=== PATIENT | female | born 1985 | race Caucasian/White ===

== ENCOUNTER 2016-05-22 01:01 | Emergency (ER) | payer SELFPAY ==
[2016-05-22] MEDS ORDERED: SPRINTEC 35 MCG1 TAB PO (01:12)
[2016-05-22] MEDS ORDERED: PERCOCET 325 MG1 TA2 PO (02:51)
[2016-05-22 03:15] VITALS: BP 128/74
== END 2016-05-22 03:15 | disposition home or self-care (01) ==
LOC: ED 01:01
DX: R10.11 Right upper quadrant pain (principal); R10.13 Epigastric pain; R11.2 Nausea with vomiting, unspecified; Z87.891 Personal history of nicotine dependence
CPT/HCPCS: C9113; J1885; J2270; J2405; J7030

== ENCOUNTER 2016-08-20 01:02 | Emergency (ER) | payer SELFPAY ==
[~2016-08-20] VITALS: Ht 162.6 cm; Wt 77.3 kg
[~2016-08-20 01:02] MED LIST: PERCOCET 325 MG1 TA2 PO; SPRINTEC 35 MCG1 TAB PO
[2016-08-20] MEDS ORDERED: FLAGYL500 M1 PO (02:46)
[2016-08-20] MEDS ORDERED: TETRACYCLINE H500 M2 PO (02:46)
[2016-08-20] MEDS ORDERED: PRILOSEC 20MG20 MG PO (02:46)
[2016-08-20] MEDS ORDERED: PEPTO BISM525 MG/15 PO (02:46)
[2016-08-20 03:12] VITALS: BP 122/63
== END 2016-08-20 03:14 | disposition home or self-care (01) ==
LOC: ED 01:02
DX: K27.3 Acute peptic ulcer, site unspecified, without hemorrhage or perforation (principal); K25.7 Chronic gastric ulcer without hemorrhage or perforation; B96.81 Helicobacter pylori [H. pylori] as the cause of diseases classified elsewhere
CPT/HCPCS: J1885; J2405; J7030

== ENCOUNTER → 2017-12-08 | Outpatient (CLI) | payer SELFPAY ==
[~2017-12-08] MED LIST changes: +FLAGYL500 M1 PO; +PEPTO BISM525 MG/15 PO; +PRILOSEC 20MG20 MG PO; +TETRACYCLINE H500 M2 PO
[2017-12-08 12:21] LABS: ALBUMIN 4.3 g/dL (3.5-5.0); CALCIUM 9.1 mg/dL (8.4-10.2); POTASSIUM 4.3 mmol/L (3.6-5.0); TOTAL BILIRUBIN 0.2 mg/dL (0.2-1.3); TOTAL PROTEIN 6.9 g/dL (6.3-8.2)
[2017-12-08 12:55] LABS: BASO # 0.1 (0.02-0.10); EOS # 0.4 (0.04-0.40); EOS % 5.8 % (1.0-5.0); HEMATOCRIT 42.8 % (37.0-47.0); LYMPH# 1.9 (1.50-4.00); MEAN CELL VOLUME 89 fl (78-100); MEAN CORPUSCULAR HEMOGLOBIN 29 pg (27-31); MEAN CORPUSCULAR HGB CONC 33 g/dL (33-37); MEAN PLATELET VOLUME 10.7 fl (7.4-10.4); MONO # 0.7 (0.20-0.80); PLATELET COUNT 249 K/mm3 (130-400); RED BLOOD COUNT 4.82 M/mm3 (4.10-5.30); RED CELL DISTRIBUTION WIDTH 12.9 % (11.5-14.5)
== END ==
LOC: LAB 11:45
PROVIDERS: Family Medicine
DX: Z01.419 Encounter for gynecological examination (general) (routine) without abnormal findings (principal); R53.83 Other fatigue; E55.9 Vitamin D deficiency, unspecified

== ENCOUNTER → 2018-06-22 | Outpatient (CLI) | payer SELFPAY ==
[2018-06-22 12:44] LABS: ALBUMIN 4.6 g/dL (3.5-5.0); CALCIUM 9.6 mg/dL (8.4-10.2); POTASSIUM 4.3 mmol/L (3.6-5.0); TOTAL BILIRUBIN 0.4 mg/dL (0.2-1.3); TOTAL PROTEIN 7.3 g/dL (6.3-8.2)
== END ==
LOC: LAB 09:55
PROVIDERS: Family Medicine
DX: K27.9 Peptic ulcer, site unspecified, unspecified as acute or chronic, without hemorrhage or perforation (principal); R10.9 Unspecified abdominal pain

== ENCOUNTER → 2018-06-27 | Outpatient (CLI) | payer SELFPAY | LOC: RAD 09:38 | DX: K80.20 Calculus of gallbladder without cholecystitis without obstruction (principal) ==

== ENCOUNTER 2018-07-09 20:05 | Emergency (ER) | payer SELFPAY ==
[2018-07-09 20:15] VITALS: BP 124/84
[2018-07-09 21:28] LABS: BASO # 0.1 (0.02-0.10); EOS # 0.4 (0.04-0.40); EOS % 5.6 % (1.0-5.0); HEMATOCRIT 41.5 % (37.0-47.0); HEMOGLOBIN 13.3 g/dL (12.5-16.0); LYMPH# 2.1 (1.50-4.00); MEAN CELL VOLUME 91 fl (78-100); MEAN CORPUSCULAR HEMOGLOBIN 29 pg (27-31); MEAN CORPUSCULAR HGB CONC 32 g/dL (33-37); MEAN PLATELET VOLUME 10.3 fl (7.4-10.4); MONO # 0.8 (0.20-0.80); NEU # 4.4 (1.40-6.50); PLATELET COUNT 218 K/mm3 (130-400); RED BLOOD COUNT 4.57 M/mm3 (4.10-5.30); RED CELL DISTRIBUTION WIDTH 13.2 % (11.5-14.5); WHITE BLOOD COUNT 7.8 K/mm3 (4.8-10.8)
[2018-07-09 21:39] LABS: PH-URINE 6.5 (5.0 - 8.0); URINE APPEARANCE CLOUDY; URINE BILIRUBIN NEGATIVE (NEGATIVE); URINE BLOOD NEGATIVE (NEGATIVE); URINE COLOR YELLOW; URINE GLUCOSE NEGATIVE (NEGATIVE); URINE KETONE NEGATIVE (NEGATIVE); URINE LEUKOCYTE ESTERASE TRACE (NEGATIVE); URINE NITRATE NEGATIVE (NEGATIVE); URINE PROTEIN(semi-quant) NEGATIVE (NEGATIVE); URINE UROBILINOGEN NORMAL (NORMAL); URINE WBC 0-1 /hpf (0-3)
[2018-07-09 21:40] LABS: ALBUMIN 4.2 g/dL (3.5-5.0); CALCIUM 9.1 mg/dL (8.4-10.2); POTASSIUM 3.6 mmol/L (3.6-5.0); TOTAL BILIRUBIN 0.3 mg/dL (0.2-1.3); TOTAL PROTEIN 6.9 g/dL (6.3-8.2); URINE MUCUS PRESENT (NOT PRESENT)
[2018-07-09] MEDS ORDERED: ZUPLENZ4 M1 PO (22:11)
[2018-07-09] MEDS ORDERED: ZOFRAN ODT4 MG PO (22:12)
[2018-07-09] MEDS ORDERED: CELEXA 20MG20 MG/TA1 PO (23:12)
== END 2018-07-09 22:19 | disposition home or self-care (01) ==
LOC: ED 20:05
PROVIDERS: Family Medicine
DX: K80.20 Calculus of gallbladder without cholecystitis without obstruction (principal); F41.0 Panic disorder [episodic paroxysmal anxiety]; F32.9 Major depressive disorder, single episode, unspecified; K21.9 Gastro-esophageal reflux disease without esophagitis; G43.909 Migraine, unspecified, not intractable, without status migrainosus; Z87.19 Personal history of other diseases of the digestive system
CPT/HCPCS: J1885; J2765; J7030

== ENCOUNTER → 2018-07-12 | Outpatient (CLI) | payer SELFPAY ==
[2018-07-09 20:15] VITALS: BP 124/84
[~2018-07-12] MED LIST changes: +CELEXA 20MG20 MG/TA1 PO; +ZOFRAN ODT4 MG PO; +ZUPLENZ4 M1 PO
[2018-07-13 12:09] LABS: C-REACTIVE PROTEIN XXX
[2018-07-14 02:11] LABS: ANA SCREEN with REFLEX Negative (Negative)
== END ==
LOC: LAB 15:23
PROVIDERS: Family Medicine
DX: R53.83 Other fatigue (principal); Z86.2 Personal history of diseases of the blood and blood-forming organs and certain disorders involving the immune mechanism

== ENCOUNTER → 2018-07-18 | Day surgery (SDC) | payer SELFPAY ==
[2018-07-09 20:15] VITALS: BP 124/84
== END ==
LOC: MSO 06:58
DX: K80.10 Calculus of gallbladder with chronic cholecystitis without obstruction (principal); J45.909 Unspecified asthma, uncomplicated; G43.909 Migraine, unspecified, not intractable, without status migrainosus; Z87.11 Personal history of peptic ulcer disease; Z88.2 Allergy status to sulfonamides
CPT/HCPCS: 00790; J0690; J1100; J1885; J2405; J2704; J3010; J7120; Q9967

== ENCOUNTER → 2020-12-18 | Outpatient (CLI) | payer SELFPAY ==
[~2020-12-18] MED LIST changes: +BONJESTA ER 201 EACH PO; +CYCLOBENZ5 MG PO; +PRENATAL VITAM1 EAC1 PO
[2020-12-19 01:24] LABS: LUTENIZING HORMONE 3.1 mIU/mL (()); PROGESTERONE 14.7 ng/mL (())
== END ==
LOC: LAB 16:39
PROVIDERS: Family Medicine
DX: N92.6 Irregular menstruation, unspecified (principal)

== ENCOUNTER → 2020-12-23 | Outpatient (CLI) | payer SELFPAY | LOC: LAB 10:03 | DX: Z32.01 Encounter for pregnancy test, result positive (principal) ==

== ENCOUNTER 2021-01-11 19:52 | Emergency (ER) | payer SELFPAY ==
[~2021-01-11] VITALS: Ht 162.6 cm; Wt 89.5 kg
[~2021-01-11 19:52] MED LIST changes: -BONJESTA ER 201 EACH PO; -CYCLOBENZ5 MG PO; -PRENATAL VITAM1 EAC1 PO
[2021-01-11] MEDS ORDERED: PRENATAL VITAM1 EAC1 PO (20:04)
[2021-01-11] MEDS ORDERED: CYCLOBENZ5 MG PO (20:05)
[2021-01-11] MEDS ORDERED: ZOFRAN ODT4 MG PO (22:05)
[2021-01-11 22:34] VITALS: BP 132/78
== END 2021-01-11 22:35 | disposition home or self-care (01) ==
LOC: ED 19:52
DX: O21.9 Vomiting of pregnancy, unspecified (principal); O99.341 Other mental disorders complicating pregnancy, first trimester; F32.A Depression, unspecified; O99.331 Smoking (tobacco) complicating pregnancy, first trimester; F17.200 Nicotine dependence, unspecified, uncomplicated; Z3A.01 Less than 8 weeks gestation of pregnancy; Z79.899 Other long term (current) drug therapy
CPT/HCPCS: J2765; J7030

== ENCOUNTER 2021-01-16 17:58 | Emergency (ER) | payer SELFPAY ==
[~2021-01-16 17:58] MED LIST changes: +CYCLOBENZ5 MG PO; +PRENATAL VITAM1 EAC1 PO
[2021-01-16 19:05] LABS: BASO # 0.05 K/mm3 (0.02-0.10); EOS # 0.05 K/mm3 (0.04-0.40); EOS % 0.4 % (1.0-5.0); HEMATOCRIT 41.1 % (37.0-47.0); HEMOGLOBIN 13.5 g/dL (12.5-16.0); LYMPH# 1.51 K/mm3 (1.50-4.00); MEAN CELL VOLUME 90 fl (78-100); MEAN CORPUSCULAR HEMOGLOBIN 29 pg (27-31); MEAN CORPUSCULAR HGB CONC 33 g/dL (33-37); MEAN PLATELET VOLUME 9.7 fl (7.4-10.4); MONO # 0.92 K/mm3 (0.20-0.80); NEU # 11.14 K/mm3 (1.40-6.50); PLATELET COUNT 273 K/mm3 (130-400); RED BLOOD COUNT 4.59 M/mm3 (4.10-5.30); RED CELL DISTRIBUTION WIDTH 12.6 % (11.5-14.5); WHITE BLOOD COUNT 13.7 K/mm3 (4.8-10.8)
[2021-01-16 19:18] LABS: POTASSIUM 3.6 mmol/L (3.5-5.1)
[2021-01-16 19:19] LABS: CALCIUM 9.4 mg/dL (8.3-10.5)
[2021-01-16 19:20] LABS: TOTAL PROTEIN 6.3 g/dL (6.4-8.3)
[2021-01-16 19:22] LABS: TOTAL BILIRUBIN 0.4 mg/dL (0.2-1.2)
[2021-01-16] MEDS ORDERED: BONJESTA ER 201 EACH PO (19:25)
[2021-01-16 20:12] LABS: URINE APPEARANCE HAZY; URINE COLOR YELLOW; URINE GLUCOSE NEGATIVE (NEGATIVE); URINE PROTEIN(semi-quant) TRACE mg/dL (NEGATIVE)
[2021-01-16 20:13] LABS: URINE KETONE 3+ (NEGATIVE)
[2021-01-16 20:14] LABS: URINE BILIRUBIN NEGATIVE (NEGATIVE); URINE BLOOD NEGATIVE (NEGATIVE); URINE LEUKOCYTE ESTERASE NEGATIVE (NEGATIVE); URINE MUCUS PRESENT (NOT PRESENT); URINE NITRATE NEGATIVE (NEGATIVE); URINE UROBILINOGEN NORMAL (NORMAL)
[2021-01-16 20:36] VITALS: BP 130/61
== END 2021-01-16 20:36 | disposition home or self-care (01) ==
LOC: ED 17:58
PROVIDERS: Nurse Practitioner
DX: O21.9 Vomiting of pregnancy, unspecified (principal); O99.341 Other mental disorders complicating pregnancy, first trimester; F32.A Depression, unspecified; Z3A.01 Less than 8 weeks gestation of pregnancy; Z79.899 Other long term (current) drug therapy
CPT/HCPCS: J2405; J2765; J7030

== ENCOUNTER → 2021-03-05 | Outpatient (CLI) | payer SELFPAY ==
[~2021-03-05] MED LIST changes: +BONJESTA ER 201 EACH PO
== END ==
LOC: LAB 12:03
DX: Z36.9 Encounter for antenatal screening, unspecified (principal)

== ENCOUNTER → 2022-06-02 | Outpatient (CLI) | payer OTHER | LOC: RAD 08:45 | DX: G93.5 Compression of brain (principal) ==

== ENCOUNTER → 2022-12-14 | Outpatient (CLI) | payer MEDICAID ==
[2022-12-14 08:28] LABS: BASO # 0.04 K/mm3 (0.02-0.10); EOS # 0.22 K/mm3 (0.04-0.40); EOS % 3.5 % (1.0-5.0); HEMATOCRIT 40.9 % (37.0-47.0); HEMOGLOBIN 13.3 g/dL (12.5-16.0); MEAN CELL VOLUME 88 fl (78-100); MEAN CORPUSCULAR HEMOGLOBIN 29 pg (27-31); MEAN CORPUSCULAR HGB CONC 33 g/dL (33-37); MONO # 0.44 K/mm3 (0.20-0.80); PLATELET COUNT 231 K/mm3 (130-400); RED BLOOD COUNT 4.66 M/mm3 (4.10-5.30); WHITE BLOOD COUNT 6.2 K/mm3 (4.8-10.8)
[2022-12-14 08:35] LABS: ALBUMIN 4.2 g/dL (3.5-5.0); POTASSIUM 4.4 mmol/L (3.5-5.1)
[2022-12-14 08:36] LABS: CALCIUM 8.9 mg/dL (8.3-10.5)
[2022-12-14 08:37] LABS: TOTAL PROTEIN 6.8 g/dL (6.4-8.3)
[2022-12-14 08:39] LABS: TOTAL BILIRUBIN 0.4 mg/dL (0.2-1.2)
== END ==
LOC: LAB 08:11
PROVIDERS: Nurse Practitioner
DX: Z00.00 Encounter for general adult medical examination without abnormal findings (principal); N93.9 Abnormal uterine and vaginal bleeding, unspecified; R53.83 Other fatigue

== ENCOUNTER → 2022-12-17 | Outpatient (CLI) | payer MEDICAID | LOC: RAD 08:49 | DX: N93.9 Abnormal uterine and vaginal bleeding, unspecified (principal) ==

== ENCOUNTER → 2023-09-15 | Outpatient (CLI) | payer MEDICAID ==
[2023-09-15 10:48] LABS: URINE APPEARANCE CLEAR (CLEAR); URINE BILIRUBIN NEGATIVE (NEGATIVE); URINE BLOOD NEGATIVE (NEGATIVE); URINE COLOR YELLOW (YELLOW); URINE GLUCOSE NEGATIVE (NEGATIVE); URINE KETONE NEGATIVE (NEGATIVE); URINE LEUKOCYTE ESTERASE NEGATIVE (NEGATIVE); URINE NITRATE NEGATIVE (NEGATIVE); URINE PROTEIN(semi-quant) NEGATIVE (NEGATIVE); URINE WBC 0-1 /hpf (0-3)
[2023-09-15 10:53] LABS: CLUE CELLS NOT OBSERVED (Not Observd)
== END ==
LOC: LAB 10:23
PROVIDERS: Nurse Practitioner
DX: N39.3 Stress incontinence (female) (male) (principal); N94.10 Unspecified dyspareunia
CPT/HCPCS: Q0111

== ENCOUNTER → 2023-09-24 | Outpatient (CLI) | payer MEDICAID | LOC: RAD 07:45 | DX: R10.2 Pelvic and perineal pain (principal) ==

== ENCOUNTER → 2024-04-03 | Outpatient (CLI) | payer MEDICAID | LOC: LAB 13:13 | DX: R05.3 Chronic cough (principal) ==

== ENCOUNTER → 2024-04-19 | Outpatient (CLI) | payer MEDICAID ==
[2024-04-19 08:00] LABS: BASO # 0.06 K/mm3 (0.02-0.10); EOS # 0.09 K/mm3 (0.04-0.40); EOS % 1.2 % (1.0-5.0); HEMATOCRIT 44.1 % (37.0-47.0); HEMOGLOBIN 14.6 g/dL (12.5-16.0); LYMPH# 1.62 K/mm3 (1.50-4.00); MEAN CELL VOLUME 90 fl (78-100); MEAN CORPUSCULAR HEMOGLOBIN 30 pg (27-31); MEAN CORPUSCULAR HGB CONC 33 g/dL (33-37); MEAN PLATELET VOLUME 9.7 fl (7.4-10.4); MONO # 0.59 K/mm3 (0.20-0.80); NEU # 4.99 K/mm3 (1.40-6.50); PLATELET COUNT 234 K/mm3 (130-400); RED BLOOD COUNT 4.89 M/mm3 (4.10-5.30); RED CELL DISTRIBUTION WIDTH 12.7 % (11.5-14.5); WHITE BLOOD COUNT 7.4 K/mm3 (4.8-10.8)
[2024-04-19 08:06] LABS: ALBUMIN 4.7 g/dL (3.5-5.0)
[2024-04-19 08:07] LABS: CALCIUM 9.3 mg/dL (8.3-10.5)
[2024-04-19 08:10] LABS: TOTAL BILIRUBIN 0.7 mg/dL (0.2-1.2)
== END ==
LOC: LAB 07:33
PROVIDERS: Family Medicine
DX: E78.5 Hyperlipidemia, unspecified (principal); E55.9 Vitamin D deficiency, unspecified; I10 Essential (primary) hypertension